=== PATIENT | female | born 1995 | race Caucasian/White ===

== ENCOUNTER → 2018-11-10 | Outpatient (CLI) | payer BC ==
--- NOTE | 2018-11-10 15:38 | Diagnostic Imaging Report ---
INDICATION: Left knee pain. Three views were obtained. FINDINGS: The alignment is normal. There is no fracture or dislocation. Soft tissues are unremarkable. IMPRESSION: No focal abnormality in the left knee. Dictated by: Dictated on workstation # [id number]
== END ==
LOC: RAD FS 14:52
PROVIDERS: ATTEND Nurse Practitioner
DX: M25.562 Pain in left knee (principal)
CPT/HCPCS: 73562

== ENCOUNTER → 2018-11-17 | Outpatient (CLI) | payer BC ==
--- NOTE | 2018-11-17 20:03 | Diagnostic Imaging Report ---
EXAMINATION: Magnetic resonance imaging of the left knee without intravenous contrast DATE: November 17, 2018. COMPARISON: Left knee radiographs November 10, 2018. INDICATION: 23-year-old female, left knee pain and swelling. TECHNIQUE: Multiplanar, multisequence non contrast enhanced MR imaging was accomplished. FINDINGS: MENISCI: The medial meniscus is intact. The lateral meniscus is intact. LIGAMENTS AND TENDONS: The anterior and posterior cruciate ligaments are intact. The medial collateral ligament is intact. The iliotibial band, mid third lateral capsular ligament, fibular collateral ligament, biceps femoris tendon and conjoined tendon are intact. The quadriceps tendon and patella ligament are intact. JOINT: The articular cartilage surfaces are intact. There is a moderate sized knee joint effusion without identified intra-articular body. There is some heterogeneous signal within the joint fluid which potentially could reflect some components of blood product although it is nonspecific.. BONE: There is unremarkable bone marrow signal. Specifically, negative for fracture, osteomyelitis, osteonecrosis, or marrow replacing process. BURSAE AND SOFT TISSUES: There is no Albert's cyst. There is low level edema in the popliteus muscle likely reflecting a low-grade strain injury. There is nonspecific prepatellar subcutaneous edema. IMPRESSION: 1. Intact menisci and cruciate ligaments. 2. Additional ligaments and tendons are intact. 3. No acute fracture or bone contusion. 4. Moderate sized knee joint effusion with areas of complex internal signal potentially reflecting blood products. Grossly intact articular cartilage. 5. Low-level strain injury of the popliteus muscle. 6. Nonspecific prepatellar subcutaneous edema. Dictated by: Dictated on workstation # [id number]
== END ==
LOC: RAD 15:02
PROVIDERS: ATTEND Nurse Practitioner
DX: S83.282A Other tear of lateral meniscus, current injury, left knee, initial encounter (principal); S86.812A Strain of other muscle(s) and tendon(s) at lower leg level, left leg, initial encounter
CPT/HCPCS: 73721